=== PATIENT | male | born 1960 | race Caucasian/White ===

== ENCOUNTER 2023-08-25 14:59 | Emergency (ER) | payer OTHER | END 2023-08-25 15:58 | disposition left against medical advice (07) | LOC: ER 14:59 | DX: R25.1 Tremor, unspecified (principal); Z53.21 Procedure and treatment not carried out due to patient leaving prior to being seen by health care provider ==

== ENCOUNTER 2024-04-25 10:15 | Emergency (ER) | payer BC, MEDICAID ==
[~2024-04-25] VITALS: Ht 195.6 cm; Wt 115.9 kg
[2024-04-25 10:57] LABS: BILIRUBIN,URINE NEGATIVE (Neg); CLARITY,URINE CLEAR (Clear); COLOR,URINE YELLOW (Yellow); GLUCOSE, URINE NEGATIVE (Neg); KETONES,URINE NEGATIVE (Neg); LEUKOCYTE ESTERASE ,URINE NEGATIVE (Neg); NITRITES, URINE NEGATIVE (Neg); OCCULT BLOOD,URINE NEGATIVE (Neg); PROTEIN,URINE TRACE mg/dl (Neg)
[2024-04-25 10:59] LABS: UA COLLECTION TYPE CLN CATCH MIDSTREAM
[2024-04-25 11:03] LABS: FINE GRANULAR CAST 0-3 /LPF (NEGATIVE); MUCUS STRANDS MODERATE /LPF (Neg); RBC,URINE 0-2 /HPF (0-2); SQUAMOUS EPITHELIAL CELL,UR NONE SEEN /LPF (FEW); WBC,URINE 0-4 /HPF (0-4)
[2024-04-25 11:04] LABS: BACTERIA,URINE FEW /HPF (Neg)
[2024-04-25] MEDS ORDERED: FLO0.4C PO (11:15)
[2024-04-25 11:37] VITALS: BP 144/78; PULSE 78; RESP 18; TEMP 98.2; O2SAT 99
== END 2024-04-25 11:39 | disposition home or self-care (01) ==
LOC: ER 10:15
DX: R39.11 Hesitancy of micturition (principal); R39.15 Urgency of urination; Z79.899 Other long term (current) drug therapy
CPT/HCPCS: 81001; 99284

== ENCOUNTER 2024-04-28 18:10 | Emergency (ER) | payer BC, MEDICAID ==
[~2024-04-28] VITALS: Ht 195.6 cm; Wt 113.6 kg
[~2024-04-28 18:10] MED LIST: FLO0.4C PO
[2024-04-28 19:49] LABS: BILIRUBIN,URINE SMALL (Neg); CLARITY,URINE CLEAR (Clear); GLUCOSE, URINE NEGATIVE (Neg); KETONES,URINE NEGATIVE (Neg); LEUKOCYTE ESTERASE ,URINE NEGATIVE (Neg); OCCULT BLOOD,URINE NEGATIVE (Neg); PROTEIN,URINE NEGATIVE (Neg)
[2024-04-28 19:57] LABS: COLOR,URINE DARK YELLOW (Yellow); NITRITES, URINE NEGATIVE (Neg); UA COLLECTION TYPE CLN CATCH MIDSTREAM
[2024-04-28] MEDS ORDERED: LEVO-65 PO (20:25)
[2024-04-28] MEDS: LidoCAINE 2% Topical Jelly 11mL syringe (UROJET) TOP ONE (20:26)
[2024-04-28 21:00] VITALS: BP 132/87; PULSE 77; RESP 18; TEMP 97.8; O2SAT 98
== END 2024-04-28 21:02 | disposition home or self-care (01) ==
LOC: ER 18:11
DX: R33.0 Drug induced retention of urine (principal); Z79.899 Other long term (current) drug therapy
CPT/HCPCS: 51702; 81003; 99284; A4314; A4358; A5200

== ENCOUNTER 2024-05-13 11:04 | Emergency (ER) | payer BC, MEDICAID ==
[~2024-05-13] VITALS: Ht 198.1 cm; Wt 113.6 kg
[2024-05-13 11:57] LABS: BASOPHILS # (AUTO) 0.1 X10'3 (0-0.2); EOSINOPHILS # (AUTO) 0.1 X10'3 (0-0.9); LYMPHOCYTES # (AUTO) 1.8 X10'3 (1.1-4.8); MONOCYTES # (AUTO) 0.4 X10'3 (0-0.9); RED BLOOD COUNT 4.13 X10'6 (4.70-6.10); WHITE BLOOD COUNT 6.2 X10'3 (4.5-11.0)
[2024-05-13 11:59] LABS: BASOPHILS % (AUTO) 0.9 % (0-1); EOSINOPHILS % (AUTO) 1.3 % (0-6); HEMATOCRIT 36.8 % (42.0-52.0); HEMOGLOBIN 11.9 g/dl (14.0-17.9); LYMPHOCYTES % (AUTO) 28.5 % (21-51); MEAN CORPUSCULAR HEMOGLOBIN 28.7 PG (27.0-31.0); MEAN CORPUSCULAR HGB CONC 32.2 g/dL (33.0-36.5); MEAN CORPUSCULAR VOLUME 89.1 FL (78-98); MEAN PLATELET VOLUME 6.2 FL (7.4-10.4); MONOCYTES % (AUTO) 6.8 % (2-12); NEUTROPHILS # (AUTO) 3.9 X10'3 (1.8-7.7); NEUTROPHILS % (AUTO) 62.5 % (42-75); PLATELET COUNT 626 X10'3 (140-440); RED CELL DISTRIBUTION WIDTH 16.2 % (11.5-14.5)
[2024-05-13 12:01] LABS: ALBUMIN 3.5 G/DL (3.4-5.0); ANION GAP 12 (8-16); BLOOD UREA NITROGEN 12 MG/DL (7-18); BUN/CREATININE RATIO 8.8 (10.0-20.0); CALCIUM 9.2 MG/DL (8.5-10.1); CHLORIDE 104 MMOL/L (99-107); CREATININE 1.36 MG/DL (0.60-1.10); GLUCOSE 108 MG/DL (70-104); POTASSIUM 3.9 MMOL/L (3.5-5.1); SODIUM 141 MMOL/L (135-145); TOTAL CARBON DIOXIDE 25.3 MMOL/L (24-32); eCRCL 74 ML/MIN; eGFR 53 ML/MIN
[2024-05-13] MEDS: normal saline 1000ML IV soln IVB ONE (12:45)
[2024-05-13] MEDS: cefazolin 2gm/D5W 100mL 100 ML IV ONE (13:31)
[2024-05-13 15:05] LABS: BILIRUBIN,URINE NEGATIVE (Neg); CLARITY,URINE CLEAR (Clear); COLOR,URINE YELLOW (Yellow); GLUCOSE, URINE NEGATIVE (Neg); KETONES,URINE NEGATIVE (Neg); LEUKOCYTE ESTERASE ,URINE NEGATIVE (Neg); NITRITES, URINE NEGATIVE (Neg); OCCULT BLOOD,URINE TRACE-INTACT (Neg); PROTEIN,URINE NEGATIVE (Neg); UROBILINOGEN,URINE 0.2 E.U/dL (0.2-1.0)
[2024-05-13 15:07] LABS: UA COLLECTION TYPE CLN CATCH MIDSTREAM
[2024-05-13 15:10] LABS: BACTERIA,URINE FEW /HPF (Neg); MUCUS STRANDS MODERATE /LPF (Neg); SQUAMOUS EPITHELIAL CELL,UR FEW /LPF (FEW)
[2024-05-13 15:11] LABS: TRANSITIONAL EPI CELLS,URINE FEW /HPF
[2024-05-13] MEDS: LIDOcaine 1% W/epiNEPHrine 1:100,000 20ml vial SQ ONE (15:45)
[2024-05-13 15:51] VITALS: BP 123/79; PULSE 62; RESP 18; TEMP 98.6; O2SAT 98
[2024-05-13] MEDS ORDERED: CIPR500T5 PO (15:54)
[2024-05-13] MEDS: FOSFOMYCIN TROMETHAMINE 3 GM PACKET PO ONE (16:14)
== END 2024-05-13 16:17 | disposition home or self-care (01) ==
LOC: ER 11:05
DX: S80.02XA Contusion of left knee, initial encounter (principal); N39.0 Urinary tract infection, site not specified; Z79.2 Long term (current) use of antibiotics; Z79.899 Other long term (current) drug therapy; Z87.820 Personal history of traumatic brain injury; Z96.653 Presence of artificial knee joint, bilateral; X58.XXXA Exposure to other specified factors, initial encounter; Y93.89 Activity, other specified; Y92.89 Other specified places as the place of occurrence of the external cause; Y99.8 Other external cause status
CPT/HCPCS: 20610; 36415; 71045; 73560; 80048; 81001; 83605; 84145; 85025; 87040; 87070; 87088; 93005; 96361; 96365; 99285; J0690; J3490; J7030; A6446; A6449

== ENCOUNTER 2024-12-14 11:08 | Emergency (ER) | payer BC, MEDICAID ==
[~2024-12-14] VITALS: Ht 195.6 cm; Wt 118.7 kg
[2024-12-14 11:30] VITALS: TEMP 97.8
--- NOTE | 2024-12-14 12:00 | RADIOLOGY REPORT ---
CLINICAL INDICATION: Hand Pain,right TECHNIQUE: 3 radiographic views of the right hand were obtained. Comparison: None FINDINGS/IMPRESSION: There is no evidence of acute fracture or dislocation. The visualized joint space is well maintained. The alignment is anatomical. There is no radiopaque foreign body.
[2024-12-14] MEDS: LIDOcaine 1% W/epiNEPHrine 1:100,000 20ml vial IJ ONE (12:29)
[2024-12-14] MEDS: TETanus/Pertussis (Acell)/Diphther VAC/PF (Tdap-Adult) 0.5ml syringe IMVAC ONE (12:29)
--- NOTE | 2024-12-14 13:56 | Physician Documentation ---
History of Present Illness ~ Chief Complaint: Laceration Stated Complaint: HAND LAC Time Seen by MD: 11:35 HPI This is a 64-year-old male who presents with a laceration to the palm of his right hand at the base of the 4th digit, patient reports he tripped and fell yesterday on some sharp gravel. Patient reports no other injuries, acute symptoms or concerns, patient reports no numbness or tingling to the 4th finger or other areas of the hand. Tetanus Within 5 Years: No Medication Reconciliation Allergies: Coded Allergies: No Known Allergies (Unverified , 12/14/24) Scheduled Cephalexin*Monohydrate* (Keflex*), 1 CAP PO QID Past Medical History Past Medical History: No Pertinent History Review of Systems ROS Laceration to palm of right hand as stated above in the HPI, otherwise all systems are reviewed and negative. Physical Exam Vital Signs: Temperature: 97.8, Source: Temporal, Respiratory Rate: 18, BP: 124/75, Pulse Oximetry: 96, Weight: 118.700 Physical Exam VITALS: Reviewed and as above. GENERAL: Alert, nontoxic appearing, no apparent distress. RESPIRATORY: No increased work of breathing, no respiratory distress, speaking in full clear sentences EXTREMITIES: 1.5 cm laceration to the palm of right hand at the base of 4th digit, digit full ROM and strength against resistance in flexion and extension, neurovascularly intact, no evidence of tendon involvement, no foreign body observed. No anatomical snuffbox tenderness to right hand, no tenderness or swelling to remainder of right hand. Procedures Laceration/Wound Repair Laceration : Location: Palm of right hand base of 4th digit Length (cm): 1.5 Anesthesia: Lidocaine w/ Epi Prep: irrigated by nurse Irrigated w/ Saline (mls): 250 Margins: revised Foreign Body: not identified Repaired: skin Wound Repaired With: sutures Suture Size/Type: 4-0, ethilon Number of Superficial Sutures: 4 Dressing Applied: simple Splint Applied?: Yes Sling Applied?: No Tolerated Procedure Well?: yes, no complications Progress Results/Orders Results/Orders Orders - VERO CRABTREE, Complete (3vw Min) (12/14/24 11:31) Laceration/I&D Tray Set Up (12/14/24 12:20) Completed Orders - BRO,VERO W PEDIATRIC CNS Hand, Complete (3vw Min) (12/14/24 11:31) Tetanus/Pertuss/Diph Acell/Pf (Boostrix (12/14/24 12:20) Lidocaine 1% W/Epi 1:100,000 (Xylocaine (12/14/24 12:20) Vital Signs 12/14/24 12/14/24 11:30 14:29 Temp 97.8 Pulse 59 Resp 18 18 B/P (MAP) 124/75 122/86 Pulse Ox 96 100 EKG/XRAY/CT/US/VASC/MRI Bone/Soft Tissue X-Ray (Ext.) : Additional Comment CLINICAL INDICATION: Hand Pain,right TECHNIQUE: 3 radiographic views of the right hand were obtained. Comparison: None FINDINGS/IMPRESSION: There is no evidence of acute fracture or dislocation. The visualized joint space is well maintained. The alignment is anatomical. There is no radiopaque foreign body. Electronically Signed by:MONICA SMITH MD Date & Time: 12/14/241156 Dictated by: MONICA SMITH MD Dictation date and time: 12/14/241156 I have reviewed and agree with the radiology report. I have reviewed and interpreted the imaging as: No fracture or dislocation, no radiopaque foreign body Medical Decision Making Findings This 64-year-old male presented with a 1.5 cm laceration to the palm of his right hand at the base of the 4th digit after tripping and falling on a course gravel surface, there was no evidence of retained foreign body and no evidence of fracture fracture or dislocation on x-ray. Remainder of physical exam was benign and no other injuries reported or observed. The laceration was thoroughly irrigated with no foreign body observed in the wound and no evidence of tendon involvement, wound was well approximated with simple interrupted sutures without complication. Hand and fingers were neurovascularly intact. Due to patient not knowing his last Tdap he was provided a tetanus booster, additionally as wound was dirty surface and was open for some time before closure prophylactic antibiotics were indicated and prescribed. Patient was provided careful home care and return to care precautions which she verbalized understanding of. Patient appropriate for outpatient follow up. Differential Dx:Considerations: Include: Avulsion, Contusion, Fracture, Hematoma, Neurovascular injury, Retained foreign body Departure Time of Disposition: 13:53 Disposition: 01 HOME / SELF CARE / HOMELESS Impression: Primary Impression: Laceration Condition: Improved Discharge Instructions: Laceration Care, Adult, [id number] Additional Instructions: Keep the area clean and dry, you may wash the area but do not soak it, keep the area covered when not cleaning it. Please return to the medical provider of your choice in seven days for a wound recheck and suture removal. Please take antibiotics as prescribed. You may return to the emergency department, an urgent care, or your primary care provider. Please follow up with your primary care provider in the next few days. Please return to the emergency department for any new or worsening concerning symptoms including but not limited to signs of infection, increased pain or swelling to your hand, or if you develop a fever. Referrals: NO PRIMARY CARE PROVIDER (PCP) Prescriptions Cephalexin*Monohydrate* (Keflex*) 500 Mg Capsule 1 CAP PO QID for 5 Days, #20 CAP Prov: VERO CRABTREE 12/14/24 Education Educated: Patient Educated regarding: diagnosis, treatment, prognosis, need for follow up Signature Scribe Signature: No scribe Attestation: The note accurately reflects work and decisions made by me.LEXIS Fall 12/14/24 22:18 VERO CRABTREE Dec 14, 2024 13:56
[2024-12-14] MEDS ORDERED: CEPH-585 PO (13:59)
[2024-12-14 14:29] VITALS: BP 122/86; PULSE 59; RESP 18; O2SAT 100
== END 2024-12-14 14:32 | disposition home or self-care (01) ==
LOC: ER 11:10
DX: S61.411A Laceration without foreign body of right hand, initial encounter (principal); W01.0XXA Fall on same level from slipping, tripping and stumbling without subsequent striking against object, initial encounter; Y93.89 Activity, other specified; Y92.89 Other specified places as the place of occurrence of the external cause; Y99.8 Other external cause status
CPT/HCPCS: 12001; 73130; 90471; 90715; 99283; A6222; J7030; A6258; A6449

== ENCOUNTER 2025-01-02 13:01 | Inpatient (IN) | payer BC, MEDICAID ==
[~2025-01-02] VITALS: Ht 195.6 cm; Wt 118.5 kg
--- NOTE | 2025-01-02 13:38 | RADIOLOGY REPORT ---
CLINICAL INDICATION: HAND PAIN TECHNIQUE: 3 radiographic views of the right hand were obtained. Comparison: DI HAND, COMPLETE (3VW MIN) on DOS: 12/14/24 FINDINGS/IMPRESSION: There is acute mildly displaced fracture through the lateral base of the 5th digit proximal phalanx w ith associated soft tissue edema. There is diffuse demineralization.
--- NOTE | 2025-01-02 14:11 | Physician Documentation ---
History of Present Illness ~ Chief Complaint: Syncope Stated Complaint: HAND PAIN Time Seen by MD: 14:01 HPI 64-year-old male history of traumatic brain injury presenting for syncopal episode. He reports multiple syncopal episodes over the last several years since his injury but have worsened over the last month. Yesterday he got up and immediately lost consciousness and does not remember falling. He states that he usually will get dizzy and lightheaded with standing.. Denies any chest pain or shortness of breath. Medication Reconciliation Allergies: Coded Allergies: No Known Allergies (Unverified , 12/14/24) Past Medical History Past Medical History: No Pertinent History Review of Systems All Other Systems at this time: Reviewed and Negative Neurological: Reports: headache Physical Exam Vital Signs: Temperature: 97.7, Source: Temporal, Heart Rate: 75, Respiratory Rate: 18, BP: 152/90, Pulse Oximetry: 97, Weight: 118.550 Oxygen Flow Rate: 0 Physical Exam Well-appearing no distress HEENT abrasion over the left temporal region with ecchymosis C-spine nontender Cardiac no murmur Pulmonary clear to auscultation bilaterally Abdomen is soft nontender Lower extremity no edema Progress Results/Orders Results/Orders Orders - ANU KEYS MD, Complete (3vw Min) (01/02/25 13:14) Orthostatic Vs (01/02/25 ) Chest,Single View (01/02/25 15:19) Saline Lock (01/02/25 15:09) Monitor (01/02/25 15:09) Ringers Solution, Lacted (Lactated Ringe (01/02/25 15:10) Completed Orders - ANU KEYS MD, Complete (3vw Min) (01/02/25 13:14) Ibuprofen Tablet (Motrin Tablet) (01/02/25 14:35) Cbc/Diff (01/02/25 15:09) MG (01/02/25 15:09) Chest,Single View (01/02/25 15:19) BMP (01/02/25 15:09) Hs Troponin I W Calculations (01/02/25 15:09) PBNP (01/02/25 15:12) Medications Received in ER Medications (Trade) Dose Ordered Sig/Garo Route PRN Reason Start Time Stop Time Status Last Admin Dose Admin (Motrin tablet) 400 mg ONCE ONCE PO 01/02/25 14:35 01/02/25 14:36 DC 01/02/25 14:53 400 MG Vital Signs 01/02/25 01/02/25 01/02/25 13:04 15:02 15:04 Temp 97.7 Pulse 75 73 80 89 Resp 18 16 B/P (MAP) 152/90 140/82 132/79 117/78 Pulse Ox 97 O2 Flow Rate 0 Laboratory Tests Test 01/02/25 15:24 White Blood Count 6.2 Red Blood Count 4.59 L Hemoglobin 13.5 L Hematocrit 41.2 L Mean Corpuscular Volume 89.7 Mean Corpuscular Hemoglobin 29.5 Mean Corpuscular Hemoglobin Concent 32.9 L Red Cell Distribution Width 15.9 H Platelet Count 289 Mean Platelet Volume 6.8 L Neutrophils (%) (Auto) 59.7 Lymphocytes (%) (Auto) 28.8 Monocytes (%) (Auto) 9.4 Eosinophils (%) (Auto) 1.4 Basophils (%) (Auto) 0.7 Neutrophils # (Auto) 3.7 Lymphocytes # (Auto) 1.8 Monocytes # (Auto) 0.6 Eosinophils # (Auto) 0.1 Basophils # (Auto) 0.0 CBC Comment Sodium Level 139 Potassium Level 4.6 Chloride Level 107 Carbon Dioxide Level 26.8 Anion Gap 5 L Blood Urea Nitrogen 15 Creatinine 1.12 H Estimated GFR/1.73 m2 66 BUN/Creatinine Ratio 13.4 Glucose Level 103 Calcium Level 8.6 Magnesium Level 2.1 Troponin I High Sensitivity 6 Pro-B-Type Natriuretic Peptide 59 Albumin 3.7 Chemistry Comments EKG/XRAY/CT/US/VASC/MRI EKG : Additional Comment EKG independently interpreted time 2:05 p.m. indication syncope normal sinus rhythm rate [address] no [address] or T-wave abnormalities Medical Decision Making Additional Information Sahil him, arrhythmia, orthostatic hypotension Departure Disposition: ADMITTED INPATIENT Admitted to Inpatient Unit: to hospitalist Impression: Primary Impression: Syncope Qualified Codes: R55 - Syncope and collapse Additional Impression: Orthostatic hypotension Additional Impression Text 64-year-old male with history of TBI presenting for syncopal episode. He has h ad multiple syncopal episodes in the past worse with standing. No chest pain no shortness of breath. Fell yesterday hit his head presenting today due to pain in his hand. While here he underwent orthostatic testing and became symptomatic and had significant blood pressure change with standing. Given his worsening symptoms discussed case with hospitalist to admit for syncopal evaluation Referrals: NO PRIMARY CARE PROVIDER (PCP) ANU KEYS MD January 02, 2025 14:10
[2025-01-02] MEDS: ibuprofen tablet 400 MG TABLET PO ONE (14:53)
--- NOTE | 2025-01-02 15:41 | RADIOLOGY REPORT ---
CHEST RADIOGRAPH Indication: CP Technique: Single frontal view of the chest was obtained Comparison: FINDINGS: The cardiac silhouette is unremarkable. The lungs demonstrate left basilar airspace opacities. The pu lmonary vasculature is unremarkable. There is no pleural effusion.. There is no pneumothorax. Aortic atherosclerotic disease IMPRESSION: 1. Left basilar airspace opacification.
[2025-01-02 15:44] LABS: BASOPHILS % (AUTO) 0.7 % (0-1); EOSINOPHILS # (AUTO) 0.1 X10'3 (0-0.9); EOSINOPHILS % (AUTO) 1.4 % (0-6); HEMATOCRIT 41.2 % (42.0-52.0); HEMOGLOBIN 13.5 g/dl (14.0-17.9); LYMPHOCYTES # (AUTO) 1.8 X10'3 (1.1-4.8); LYMPHOCYTES % (AUTO) 28.8 % (21-51); MEAN CORPUSCULAR HEMOGLOBIN 29.5 PG (27.0-31.0); MEAN CORPUSCULAR HGB CONC 32.9 g/dL (33.0-36.5); MEAN CORPUSCULAR VOLUME 89.7 FL (78-98); MEAN PLATELET VOLUME 6.8 FL (7.4-10.4); MONOCYTES # (AUTO) 0.6 X10'3 (0-0.9); MONOCYTES % (AUTO) 9.4 % (2-12); NEUTROPHILS # (AUTO) 3.7 X10'3 (1.8-7.7); NEUTROPHILS % (AUTO) 59.7 % (42-75); PLATELET COUNT 289 X10'3 (140-440); RED BLOOD COUNT 4.59 X10'6 (4.70-6.10); RED CELL DISTRIBUTION WIDTH 15.9 % (11.5-14.5); WHITE BLOOD COUNT 6.2 X10'3 (4.5-11.0)
[2025-01-02 15:52] LABS: ALBUMIN 3.7 G/DL (3.4-5.0); ANION GAP 5 (8-16); BLOOD UREA NITROGEN 15 MG/DL (7-18); BUN/CREATININE RATIO 13.4 (10.0-20.0); CALCIUM 8.6 MG/DL (8.5-10.1); CHLORIDE 107 MMOL/L (99-107); CREATININE 1.12 MG/DL (0.60-1.10); GLUCOSE 103 MG/DL (70-104); MAGNESIUM 2.1 MG/DL (1.5-2.4); POTASSIUM 4.6 MMOL/L (3.5-5.1); PRO BRAIN NATRIURETIC PEPTIDE 59 PG/ML (0-125); SODIUM 139 MMOL/L (135-145); TOTAL CARBON DIOXIDE 26.8 MMOL/L (24-32); eCRCL 86 ML/MIN; eGFR 66 ML/MIN
[2025-01-02 16:15] VITALS: BP 107/60; PULSE 66; RESP 16; TEMP 97.7; O2SAT 96
[2025-01-02] MEDS: ringers solution, lacted 1,000 ML IV ONE (16:15)
[2025-01-02] MEDS ORDERED: ondansetron/PF 4mg/2ml inj IV PRN (16:50)
[2025-01-02] MEDS ORDERED: morphine 2 MG/ML inj. syringe IV PRN ×2 (16:50)
[2025-01-02] MEDS ORDERED: normal saline 1000ml 1,000 ML IV SCH (16:50)
[2025-01-02] MEDS ORDERED: acetaminophen 325mg tablet PO PRN ×2 (16:50)
[2025-01-02] MEDS ORDERED: HYDROcodone/acetaminophen 5mg/325mg tablet PO PRN (16:50)
[2025-01-02] MEDS ORDERED: mag hydrox/Alum hydrox/simeth 30ml oral suspension PO PRN (16:50)
[2025-01-02] MEDS ORDERED: magnesium hydroxide 30ml (MOM) UD suspension PO PRN (16:50)
--- NOTE | 2025-01-02 16:59 | HISTORY AND PHYSICAL ---
History & Physical Providers to CC ~ History of Present Illness Reason for Admit\Complaint: Syncope History of Present Illness This is a 64 years old male with history of traumatic brain injury who comes in after a syncopal episode; the episodes happened today while he was trying to get up he stated that he was out for possibly about 10 seconds and found himself down on the ground; patient stated that maybe he was groggy for about 10 seconds afterwards he was back to his normal self; he has a long history of getting lightheaded with standing; he stated that sometimes it is worse than others and he has been in a worse situation over the past couple of month; he stated that he has some difficulty and dysuria with urination; denies any nausea vomiting or diarrhea; denies any fever or chills; he has some headache after this fall; he also has a history of psychiatric illnesses and he is on multiple psychiatric medications; looks like about a month back he has been started on methylphenidate which per the patient improve his condition and he does not think that that made his condition worse Allergies: Coded Allergies: No Known Allergies (Unverified , 12/14/24) Home Medications Home Medications Active Past Medical History Past Medical History Traumatic brain injury Unknown psychiatric condition Past Surgical History Surgical History Comment Bilateral knee replacement Nipple foot surgeries related to flatfoot Past Social History Social History Comment Family history-no family history of diabetes or heart problems Social history-drinks a couple of beers at every day, no smoking or drugs ROS ROS A 10 point review of system was done with pertinent positives and negatives in the history of present illness Exam Vitals: Vital Signs Date Time Temp Pulse Resp B/P (MAP) Pulse Ox O2 Delivery O2 Flow Rate FiO2 01/02/25 16:15 97.7 66 16 107/60 (76) 96 0 General: Patient is in bed in nonacute distress HEENT normal oral mucosa no JVD no palpable firm palpable thyroid eyes with PERRLA; bruising of the left side of the face including the zygomatic area Lungs with normal bilateral entry no crackles no wheezing Heart normal rate and rhythm S1-S2 no murmurs Abdomen is soft nontender bowel sounds are present Right hand in an immobilizer dressing, no lower extremity edema Patient is awake and alert grossly motor and sensory intact Diagnostic Data Last Recorded Lab Results: 01/02/25 1524 01/02/25 1524 Advance Care Planning Advanced Care plannin - 30 Minutes Additional Plan Patient presents with syncopal episode per patient happened with standing; this is an acute on chronic situation as patient stated that this is been ongoing for long and has been getting worse over the past couple of months; check orthostatics; IV fluids; patient stated that he has some urinary symptoms so we will check a UA; CT of the head without contrast; check TSH, echo; patient will be put on telemetry History of traumatic brain injury History of unspecified psychiatric condition for which patient takes multiple medications including being recently started on methylphenidate; possibly related? Right hand injury adressed in ED Date of Service: January 02, 2025 Billing Provider: LÁZARO PRITCHETT MD Common Visit Codes: 29490-TMQDVUI INP/OBS CARE (HIGH) Secondary Visit Codes: [id number] CARE PLAN 30 MINUTES LÁZARO PRITCHETT MD January 02, 2025 16:59
--- NOTE | 2025-01-02 17:23 | RADIOLOGY REPORT ---
EXAM: CT CT HEAD HISTORY: head trauma COMPARISON: None TECHNIQUE: Axial images were obtained and reformatted in coronal and sagittal planes. All CT scans at this medical facility are performed using dose modulation techniques as appropriate to a performed e xam including the following: Automated exposure control was utilized; adjustment of the MA and/or KV according to patient size; and use of iterative reconstruction technique. CT Dose: CTDI volume is 65 mGy. Dose-length product is 1233 mGy*cm FINDINGS: Supratentorial Region: No evidence for large acute territorial ischemia. No intracranial hemorrhage is noted. Posterior Fossa: No acute abnormality. Brainstem: Unremarkable. Sellar/Suprasellar Region: Unremarkable. Ventricles, Cisterns, Sulci: Age-appropriate. Orbits: Unremarkable. Paranasal Sinuses: Unremarkable. Mastoid Air Cells: Unremarkable. Vasculature: Intracranial arterial calcified plaque formation noted. Bones/Soft Tissues: No acute abnormality. Other: None. IMPRESSION: 1. No acute intracranial abnormality.
[2025-01-02 19:48] LABS: THYROID STIMULATING HORMONE 1.95 ulU/ml (0.34-4.50)
[2025-01-02] MEDS ORDERED: docusate sod 100mg capsule PO SCH (20:00)
--- NOTE | 2025-01-03 08:17 | ELECTROCARDIOGRAPH REPORT ---
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
--- NOTE | 2025-01-03 16:37 | PROGRESS NOTE ---
Daily Progress Note Providers to CC ~ Antibiotic Timeout Antibiotic Ordered?: No Objective Vital Signs Date Time Temp Pulse Resp B/P (MAP) Pulse Ox O2 Delivery O2 Flow Rate FiO2 01/02/25 19:32 01/02/25 16:15 97.7 66 16 96 0 Result Diagram: 01/02/25 1524 01/02/25 1524 Problem\Assessment\Plan Patient left AMA Date of Service: January 03, 2025 Billing Provider: LÁZARO PRITCHETT MD Common Visit Codes: NOT BILLABLE LÁZARO PRITCHETT MD January 03, 2025 16:37
== END 2025-01-02 19:52 | disposition left against medical advice (07) | DRG 204 ==
LOC: ER 13:02 → ED HOLD 16:53
PROVIDERS: ADMIT Internal Medicine; ATTEND Internal Medicine
DX: I95.1 Orthostatic hypotension (principal); Z53.29 Procedure and treatment not carried out because of patient's decision for other reasons; Z96.653 Presence of artificial knee joint, bilateral; Z87.820 Personal history of traumatic brain injury; Z79.899 Other long term (current) drug therapy
CPT/HCPCS: 36415; 70450; 71045; 73130; 80048; 83735; 83880; 84443; 84484; 85025; 93005; 96360; 99285; A6449; G0378; J7120; L0172

== ENCOUNTER 2025-01-04 12:55 | Emergency (ER) | payer MEDICAID ==
[~2025-01-04] VITALS: Ht 195.6 cm; Wt 118.0 kg
[2025-01-04 12:56] VITALS: BP 144/105; PULSE 108; TEMP 98; O2SAT 100
[2025-01-04] MEDS ORDERED: IBUP-1986 PO (13:36)
--- NOTE | 2025-01-04 13:36 | Physician Documentation ---
History of Present Illness ~ Chief Complaint: Wound Re-Check Stated Complaint: R HAND INJURY RECHECK Time Seen by MD: 13:07 HPI This is a 64-year-old male who presents with right hand pain after being seen here two days prior after a syncopal episode where he injured his right hand and face, patient has hand and wrist in a splint due to fracture of the proximal 5th metacarpal. Patient reports that he was not provided a referral to an orthopedist for follow up and does not have a primary care provider. Patient reports that he has not been taking any medication for the hand and the pain in his hand is worsening. Patient reports no other acute symptoms or concerns. Tetanus within 5 years?: No Medication Reconciliation Allergies: Coded Allergies: No Known Allergies (Unverified , 12/14/24) Scheduled Ibuprofen (Ibuprofen), 1 TAB PO Q8H Past Medical History Past Medical History: No Pertinent History Review of Systems ROS Right hand pain as stated above in the HPI, otherwise all systems are reviewed and negative. Physical Exam Vital Signs: Temperature: 98.0, Source: Temporal, Heart Rate: 108, Respiratory Rate: 16, BP: 144/105, Pulse Oximetry: 100, Weight: 118.000 Oxygen Flow Rate: 0 Physical Exam VITALS: Reviewed and as above. GENERAL: Alert, nontoxic appearing, no apparent distress. RESPIRATORY: No increased work of breathing, no respiratory distress, speaking in full clear sentences MUSCULOSKELETAL: Fingers of right hand neurovascularly intact, brisk capillary refill, no ecchymosis Progress Results/Orders Results/Orders Completed Orders - VERO CRABTREE [employer] Ketorolac Trometh 15mg/Ml Vial (Toradol (01/04/25 13:30) Vital Signs 01/04/25 01/04/25 12:56 13:48 Temp 98.0 Pulse 108 Resp 16 16 B/P (MAP) 144/105 Pulse Ox 100 O2 Flow Rate 0 Medical Decision Making Additional info obtained from: old records Findings This 64-year-old male presented back to the emergency department due to right hand pain after being diagnosed with a 5th metacarpal fracture and placed in a splints two days prior, patient reported he had not been provided outpatient follow up instructions or a pain medication for pain management at home. The hand is neurovascularly intact and there appears to be no signs of complication from the splint or injury. Remainder of physical exam was benign and patient is appropriate for outpatient follow up. Patient medicated for pain with decrease pain reported. Patient provided information on following up with orthopedist and prescription for pain medication provided. Home care instructions and return to care precautions provided and patient verbalized understanding. Differential Dx:Considerations: Include: Other (Compartment syndrome, neurovascular injury, intractable pain) Departure Time of Disposition: 13:33 Disposition: 01 HOME / SELF CARE / HOMELESS Impression: Primary Impression: Right hand pain Condition: Improved Discharge Instructions: Metacarpal Fracture, [id number] Additional Instructions: Please follow up with [facility] as you of already been seen by them for your knee replacements. Please use the high-dose ibuprofen as needed for pain starting tomorrow, you may also use Tylenol as needed for pain as directed by the [id number] packaging. Please establish and follow up with a primary care provider in the next few days. Please return to the emergency department for any new or worsening concerning symptoms including but not limited to swelling to your hand, loss of feeling in her hand, or if you develop a fever. Referrals: NO PRIMARY CARE PROVIDER (PCP) Prescriptions Ibuprofen (Ibuprofen) 800 Mg Tablet 1 TAB PO Q8H for pain for 10 Days, #30 TAB 0 Refills Prov: VERO CRABTREE 01/04/25 Education Educated: Patient Educated regarding: diagnosis, treatment, prognosis, need for follow up Signature Scribe Signature: No scribe Attestation: The note accurately reflects work and decisions made by me.LEXIS Fall 01/04/25 22:27 VERO CRABTREE January 04, 2025 13:36
[2025-01-04 13:48] VITALS: RESP 16
[2025-01-04] MEDS: ketorolac trometh 15mg/ml vial 15 MG/ML ML IM ONE (13:48)
== END 2025-01-04 13:55 | disposition home or self-care (01) ==
LOC: ER 12:56
DX: M79.641 Pain in right hand (principal); R55 Syncope and collapse; Z79.899 Other long term (current) drug therapy
CPT/HCPCS: 96372; 99284; J1885

== ENCOUNTER 2025-08-13 15:28 | Inpatient (IN) | payer BC, MEDICAID ==
[~2025-08-13] VITALS: Ht 198.1 cm; Wt 119.8 kg
[~2025-08-13 15:28] MED LIST changes: -FLO0.4C PO; +IBUP-1986 PO
--- NOTE | 2025-08-13 15:54 | ELECTROCARDIOGRAPH REPORT ---
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 Nick Almeida Measurements Intervals [place] Rate: 110 P: 51 [place]: 160 QRS: -51 QRSD: 93 T: 50 QT: 346 QTc: 469 Interpretive Statements Sinus tachycardia Abnormal R-wave progression, early transition Inferior infarct, old Consider anterior infarct Electronically Signed On 08-15-2025 11:17:[address] Nick Almeida Please click the below link to view image of tracing.
[2025-08-13 15:59] LABS: MEAN PLATELET VOLUME 7.0 FL (7.4-10.4); RED CELL DISTRIBUTION WIDTH 15.1 % (11.5-14.5)
[2025-08-13 16:23] LABS: CREATININE 1.29 MG/DL (0.60-1.10); PRO BRAIN NATRIURETIC PEPTIDE 505 PG/ML (0-125); TOTAL CARBON DIOXIDE 25.6 MMOL/L (24-32); eCRCL 77 ML/MIN; eGFR 56 ML/MIN
--- NOTE | 2025-08-13 16:31 | RADIOLOGY REPORT ---
CLINICAL HISTORY: CP TECHNIQUE: 1 view of the chest was obtained. WID: COMPARISON: DI CHEST,SINGLE VIEW on DOS: 01/02/25, DI CHEST,SINGLE VIEW on DOS: 05/13/24 FINDINGS: Lungs: clear Cardiomediastinal silhouette: Status post median sternotomy. Heart is normal in size. Bones: No acute osseous abnormality. Imaged Upper Abdomen: unremarkable. IMPRESSION: NO ACUTE CARDIOPULMONARY PROCESS.
--- NOTE | 2025-08-13 17:47 | RADIOLOGY REPORT ---
CHEST RADIOGRAPH INDICATION: DIZZY TECHNIQUE: Single frontal view of the chest was obtained COMPARISON: DI CHEST,SINGLE VIEW on DOS: 08/13/25, DI CHEST,SINGLE VIEW on DOS: 01/02/25, DI CHEST,SINGLE VIEW on DOS: 05/13/24 FINDINGS: Lines and Tubes: None Lungs: No focal consolidation. Pleura: No effusion. No pneumothorax. Cardiomediastinal contours: Heart size is within Normal limits with mild atherosclerotic calcification and uncoiling of the aorta. Bones: No acute osseous abnormality. Small hiatal hernia. IMPRESSION: No acute cardiopulmonary disease.
--- NOTE | 2025-08-13 19:49 | Physician Documentation ---
History of Present Illness ~ Chief Complaint: Syncope Stated Complaint: POSS STROKE Time Seen by MD: 21:50 OK to notify your PCP?: Yes Source: patient Mode of Arrival: POV Exam Limitations: no limitations HPI Patient is a 64-year-old male with past medical history of TBI, vertigo and chronic pain presenting to the ED for evaluation of ongoing dizzy spells for the past two days. Patient reports that he had a TBI years ago and has had exper ienced vasovagal syncopal episodes with associated vertigo since then. He states that this usually happens once a month, and his last syncopal episode was on 08/10/2025. Patient reports that he was sitting around family when he stood up and suddenly blacked out" to the floor. Denies head strike, loss of consciousness, neck or back pain. Alongside this patient also reports of having urinary urgency and sometimes bowel incontinence. He is not on any anticoagulants. He is currently following up with a neurologist but is currently going through a change in providers. He reports that he was seen at his regular doctor and was prescribed midodrine for orthostatic hypotension. Medication Reconciliation Allergies: Coded Allergies: No Known Allergies (Unverified , 08/13/25) Scheduled Clonazepam (Clonazepam), 1 TAB PO BID, (Reported) Escitalopram Oxalate (Escitalopram Oxalate), 1 TAB PO DAILY, (Reported) Finasteride (Finasteride), 1 TAB PO DAILY, (Reported) Gabapentin (Gabapentin), 1 CAP PO BID, (Reported) Hydroxyzine Pamoate (Hydroxyzine Pamoate), 1 CAP PO QID, (Reported) Omeprazole (Prilosec), 1 CAP PO BID, (Reported) Trazodone HCl (Trazodone HCl), 1 TAB PO HS, (Reported) Miscellaneous Medications Lurasidone HCl (Lurasidone HCl), 1 TAB PO, (Reported) Midodrine Hcl (Midodrine Hcl), (Reported) [Tamsulosin], (Reported) Discontinued Medications Ibuprofen (Ibuprofen), 1 TAB PO Q8H, (Reported) Past Medical History Past Medical History: Vertigo, Sleep Apnea, GERD, Chronic Pain, Anxiety, Depression Other Past Medical History: History of sleep apnea, patient has had sleep studies in the past. Not on home O2. To TBI Smoking Status: Unknown if ever smoked Review of Systems All Other Systems at this time: Reviewed and Negative ROS Constitutional: Negative for fever and chills. HENT: Negative for sore throat and rhinorrhea. Eyes: Negative for pain and redness. Respiratory: Negative for cough and SOB. Cardiovascular: Negative for chest pain and palpitations. Gastrointestinal: Negative for nausea and vomiting. . Genitourinary: Negative for dysuria and hematuria. Musculoskeletal: Negative for acute back pain and acute neck pain. Skin: Negative for rash and pruritus. Neurological: Negative for acute numbness or weakness. Physical Exam Vital Signs: RN Vital Signs have been reviewed: Yes, Temperature: 97.8, Source: Temporal, Heart Rate: 92, Respiratory Rate: 18, BP: 177/114, Pulse Oximetry: 96 , Weight: 119.800 Oxygen Flow Rate: 0 Pulse Oximetry Reflects: adequate oxygenation Physical Exam General: Awake no acute distress. Verbal Head: No trauma Eyes: Nl lids Nl conjunctiva. No eye discharge ENT: Mucous membranes Nl. Lips Nl. No lesions Neck: Supple. No JVD. No visible mass Resp: Rate normal. No respiratory distress. No retractions. Normal air flow. No wheezes, rhonchi, or rales. Heart: Regular rhythm. No murmur. No rub Abdomen: Soft. Nontender. No guarding. No rebound Musc/skeletal: No calf or popliteal tenderness. No edema Skin: No rash. No petechiae. Not diaphoretic Neuro: Alert, oriented. Normal speech Progress Results/Orders Results/Orders Orders - DAVID LOZANO MD [facility] Hospitalist (08/14/25 01:00) Fill Out Med Reconciliation (08/14/25 01:00) Completed Orders - DAVID LOZANO MD Iohexol 350mg/Ml 100ml (Omnipaque 350mg/ (08/13/25 23:40) Vital Signs 08/13/25 08/13/25 08/13/25 08/13/25 15:45 19:47 21:08 22:00 Temp 97.8 Pulse 92 96 86 Resp 18 17 26 B/P (MAP) 177/114 101/81 (88) 120/90 (100) Pulse Ox 96 96 90 O2 Flow Rate 0 0 08/13/25 08/14/25 23:00 01:00 Pulse 82 80 Resp 27 10 B/P (MAP) 139/88 (105) 131/95 (107) Pulse Ox 90 92 Laboratory Tests Test 08/13/25 15:40 08/13/25 18:03 White Blood Count 9.0 Red Blood Count 4.60 L Hemoglobin 14.3 Hematocrit 42.6 Mean Corpuscular Volume 92.5 Mean Corpuscular Hemoglobin 31.0 Mean Corpuscular Hemoglobin Concent 33.6 Red Cell Distribution Width 15.1 H Platelet Count 260 Mean Platelet Volume 7.0 L Neutrophils (%) (Auto) 68.7 Lymphocytes (%) (Auto) 21.8 Monocytes (%) (Auto) 8.1 Eosinophils (%) (Auto) 0.9 Basophils (%) (Auto) 0.5 Neutrophils # (Auto) 6.2 Lymphocytes # (Auto) 2.0 Monocytes # (Auto) 0.7 Eosinophils # (Auto) 0.1 Basophils # (Auto) 0.0 CBC Comment Sodium Level 142 Potassium Level 3.6 Chloride Level 104 Carbon Dioxide Level 25.6 Anion Gap 12 Blood Urea Nitrogen 9 Creatinine 1.29 H Estimated GFR/1.73 m2 56 BUN/Creatinine Ratio 7.0 L Glucose Level 111 H Calcium Level 9.2 Troponin I High Sensitivity 22 20 Pro-B-Type Natriuretic Peptide 505 H Albumin 3.8 Chemistry Comments Troponin I High Sens Percent Delta 9 Troponin I Hi Sens Absolute Change -2 EKG/XRAY/CT/US/VASC/MRI Chest X-Ray : Interpreted By: radiologist Views: 1 VIEW Additional Comments CLINICAL HISTORY: CP TECHNIQUE: 1 view of the chest was obtained. WID: COMPARISON: DI CHEST,SINGLE VIEW on DOS: 01/02/25, DI CHEST,SINGLE VIEW on DOS: 05/13/24 FINDINGS: Lungs: clear Cardiomediastinal silhouette: Status post median sternotomy. Heart is normal in size. Bones: No acute osseous abnormality. Imaged Upper Abdomen: unremarkable. IMPRESSION: NO ACUTE CARDIOPULMONARY PROCESS. Electronically Signed by:JAYA MASON MD Date & Time: 08/13/[address] : Interpreted By: radiologist CT: head Impression CLINICAL HISTORY: Increased dizziness. TECHNIQUE: Helical imaging carried out from skull base to vertex without intravenous contrast. This exam was performed according to our departmental dose optimization program. Up-to-date CT equipment and radiation dose reduction techniques are utilized as appropriate. CTDIVol: 68.15 mGy DLP: 1251.1 mGy-cm WID: COMPARISON: CT CT HEAD on DOS: 01/02/25 FINDINGS: Mild cerebral volume loss with concordant prominence of the subarachnoid spaces and ventricles. Minor patchy low-attenuation in the cerebral white matter co nsistent with nonspecific white matter disease. Calcified plaque in the intracranial internal carotid arteries. There is no midline shift or mass effect. The [place] white matter interfaces are maintained. The basal cisterns are patent. There is no evidence of acute intracranial hemorrhage or extra-axial fluid collection. The mastoid air cells and visualized paranasal sinuses are well-aerated. IMPRESSION: 1. No acute intracranial abnormality. 2. Mild cerebral volume loss and minor chronic microvascular ischemic change. Electronically Signed by:DEMETRICE ALVARADO MD Date & Time: 08/13/252033 EXAM: CT CT T L SPINE HISTORY: DIZZINESS, R/O SPINAL IMPINGEMENT COMPARISON: None TECHNIQUE: Noncontrast axial CT images of the thoracic and lumbar spine were performed. Sagittal and coronal reformatted images were obtained. This CT exam was performed using one or more of the following dose reduction techniques: Automated exposure control, adjustment of the mA and/or kv according to patient size, or the use of iterative reconstruction techniques. Radiation Dose: CT Dose: CTDI volume is 34.70 mGy. Dose-length product is 2487.49 mGy*cm FINDINGS: There is no acute displaced fracture. There are mild degenerative changes of the thoracolumbar spine characterized by endplate osteophytosis and interve rtebral disc space narrowing. There is no CT evidence of high-grade spinal canal stenosis. The paraspinal soft tissues are unremarkable. There is a moderate hiatal hernia. IMPRESSION: 1. No acute displaced fracture. If clinical symptoms persist, MRI may be beneficial in further assessment. Electronically Signed by:HEAVEN STEVEN MD Date & Time: 08/14/25 0035 INDICATION: DIZZINESS, R/O SPINAL IMPINGEMENT COMPARISON: CT CT HEAD on DOS: 08/13/25, CT CT HEAD on DOS: 01/02/25 TECHNIQUE: CTA imaging of the head and neck was performed following the uneventful administration of intravenous contrast. Sagittal and coronal reformatted images were obtained from the source data. All CT scans at this medical facility are performed using dose modulation techniques as appropriate to a performed exam including the following: Automated exposure control was utilized; adjustment of the MA and/or KV according to patient size; and use of iterative reconstruction technique. 3D MIP post-processing of the source data set was performed and reviewed by the radiologist. Radiation Dose Information: CT Dose: CTDI volume is 16.0 mGy. Dose-length product is 697.96 mGy*cm FINDINGS: Diminutive left vertebral artery with a focal occlusion of the intradural segment. There is reconstitution of distal opacification. The caliber and course of the distal internal carotid arteries is unremarkable. No evidence of high-grade stenosis or occlusion of the proximal branch vessels of the [place]. The basilar artery is patent. No evidence of large aneurysm or art eriovenous malformation. The visualized thoracic aortic arch and proximal great vessels ar within e unremarkable. The left common, internal and external carotid arteries are within normal limits. Mild calcified plaque about the right carotid bulb. The right common, internal and external carotid arteries are otherwise unremarkable. The right vertebral artery is dominant. The left vertebral artery is diminutive. The limited visualized lung apices are clear. The surrounding soft tissues and osseous structures are otherwise unremarkable. IMPRESSION: 1. Diminutive left vertebral artery with a focal occlusion of the intradural segment. There is reconstitution of distal opacification. Electronically Signed by:HEAVEN STEVEN MD Date & Time: 08/14/25 0032 Medical Decision Making Additional information obtaine: old records, N/A Findings NIH stroke scale 0 EKG, no signs of ischemia EKG no signs of ischemia no eleEKG, no signs of ischemia no elevations are depressions X-ray, no acute findingsX-ray, no acute findings Labs no acute findLabs no acute findings Patient reports syncopal episodes associated with dizziness and weakness assoc iated with dizziness and weakness since his TBI. CT Head no acute findings CTA head and neck shows dimunitive vertebral artery with collateralization. 3+ test/labs used to diagnose Reviewed nursing notes Reviewed triage notes No social factors or issues at this time Differential diagnosis Meniere's, CVA, BPPV, TBI complications Clinical impression vertigo and paroxysmal syncope Patient will benefit from admission to the hospital for MRI, echocardiogram, orthostatic testing. Patient will be followed by Neurology Patient admitted at this time after discussion with hospitalist. Differential Dx:Considerations: Include: CVA, other (Vertigo, BPPB, [place]) Additional Information See MDM Departure Time of Disposition: 02:31 Disposition: 09 ADMITTED INPATIENT Admitted to Inpatient Unit: yes, to hospitalist Impression: Primary Impression: Vertebral artery occlusion Additional Impressions: Syncope Vertigo Condition: Unstable Referrals: NO PRIMARY CARE PROVIDER (PCP) Education Educated: Patient Educated regarding: diagnosis, treatment Additional Comment Medical Screen Exam This patient recieved a medical screening examination. After reviewing the individual's medical complaints with presenting symptoms and performing an appropriate physical examination, it was determined that no immediate life- threatening emergency medical condition is present. This individual is also not a women having contractions. Signature Scribe Signature: Scribed for David Lozano MD by Liliana Jackson . 08/13/25 22:10 Attestation: Signed by David Lozano MD by David Lozano . 08/17/2025 0139 JENNIFER EATON Aug 13, 2025 19:49 LILIANA MONTOYA Aug 13, 2025 22:13 DAVID LOZANO MD Aug 17, 2025 01:37
--- NOTE | 2025-08-13 20:37 | RADIOLOGY REPORT ---
CLINICAL HISTORY: Increased dizziness. TECHNIQUE: Helical imaging carried out from skull base to vertex without intravenous contrast. This exam was performed according to our departmental dose optimization program. Up-to-date CT equipment and radiation dose reduction techniques are utilized as appropriate. CTDIVol: 68.15 mGy DLP: 1251.1 mGy-cm WID: COMPARISON: CT CT HEAD on DOS: 01/02/25 FINDINGS: Mild cerebral volume loss with concordant prominence of the subarachnoid spaces and ventricles. Minor patchy low-attenuation in the cerebral white matter consistent with nonspecific white matter disease. Calcified plaque in the intracranial internal carotid arteries. There is no midline shift or mass effect. The [place] white matter interfaces are maintained. The basal cisterns are patent. There is no evidence of acute intracranial hemorrhage or extra-axial fluid collection. The mastoid air cells and visualized paranasal sinuses are well-aerated. IMPRESSION: 1. No acute intracranial abnormality. 2. Mild cerebral volume loss and minor chronic microvascular ischemic change.
--- NOTE | 2025-08-14 00:27 | RADIOLOGY REPORT ---
EXAM: CT CT CERVICAL SPINE INDICATION: DIZZINESS, R/O SPINAL IMPINGEMENT EXAM DATE: 08/13/2025 11:34 PM COMPARISON: None TECHNIQUE: Multiple axial CT images of the cervical spine were obtained using bone algorithm. Axial and coronal reformatting was done. Bone and soft tissue windows were reviewed. Radiation Dose Information: CT Dose: CTDI volume is 21.97 mGy. Dose-length product is 606.25 mGy*cm FINDINGS: There is no acute displaced fracture. There are degenerative changes of the cervical spine characterized by endplate osteophytosis and intervertebral disc space narrowing. No CT evidence of high-grade spinal stenosis. There is mild uncovertebral and facet hypertrophy contributing to mild multilevel neural foraminal narrowing. The paraspinal soft tissues are unremarkable. IMPRESSION: 1. No acute displaced fracture. 2. Degenerative changes of the cervical spine as detailed. If clinically indicated, MRI may be beneficial further evaluation. 3. All CT scans at this medical facility are performed using dose modulation techniques as appropriate to a performed exam including the following: Automated exposure control was utilized; adjustment of the MA and/or KV according to patient size; and use of iterative reconstruction technique.
--- NOTE | 2025-08-14 00:34 | RADIOLOGY REPORT ---
INDICATION: DIZZINESS, R/O SPINAL IMPINGEMENT COMPARISON: CT CT HEAD on DOS: 08/13/25, CT CT HEAD on DOS: 01/02/25 TECHNIQUE: CTA imaging of the head and neck was performed following the uneventful administration of intravenous contrast. Sagittal and coronal reformatted images were obtained from the source data. All CT scans at this medical facility are performed using dose modulation techniques as appropriate to a performed exam including the following: Automated exposure control was utilized; adjustment of the MA and/or KV according to patient size; and use of iterative reconstruction technique. 3D MIP post-processing of the source data set was performed and reviewed by the radiologist. Radiation Dose Information: CT Dose: CTDI volume is 16.0 mGy. Dose-length product is 697.96 mGy*cm FINDINGS: Diminutive left vertebral artery with a focal occlusion of the intradural segment. There is reconstitution of distal opacification. The caliber and course of the distal internal carotid arteries is unremarkable. No evidence of high-grade stenosis or occlusion of the proximal branch vessels of the [place]. The basilar artery is patent. No evidence of large aneurysm or arteriovenous malformation. The visualized thoracic aortic arch and proximal great vessels ar within e unremarkable. The left common, internal and external carotid arteries are within normal limits. Mild calcified plaque about the right carotid bulb. The right common, internal and external carotid arteries are otherwise unremarkable. The right vertebral artery is dominant. The left vertebral artery is diminutive. The limited visualized lung apices are clear. The surrounding soft tissues and osseous structures are otherwise unremarkable. IMPRESSION: 1. Diminutive left vertebral artery with a focal occlusion of the intradural segment. There is reconstitution of distal opacification.
--- NOTE | 2025-08-14 00:38 | RADIOLOGY REPORT ---
EXAM: CT CT T L SPINE HISTORY: DIZZINESS, R/O SPINAL IMPINGEMENT COMPARISON: None TECHNIQUE: Noncontrast axial CT images of the thoracic and lumbar spine were performed. Sagittal and coronal reformatted images were obtained. This CT exam was performed using one or more of the following dose reduction techniques: Automated exposure control, adjustment of the mA and/or kv according to patient size, or the use of iterative reconstruction techniques. Radiation Dose: CT Dose: CTDI volume is 34.70 mGy. Dose-length product is 2487.49 mGy*cm FINDINGS: There is no acute displaced fracture. There are mild degenerative changes of the thoracolumbar spine characterized by endplate osteophytosis and intervertebral disc space narrowing. There is no CT evidence of high-grade spinal canal stenosis. The paraspinal soft tissues are unremarkable. There is a moderate hiatal hernia. IMPRESSION: 1. No acute displaced fracture. If clinical symptoms persist, MRI may be beneficial in further assessment.
[2025-08-14] MEDS ORDERED: ondansetron/PF 4mg/2ml inj IV PRN (01:20)
[2025-08-14] MEDS ORDERED: magnesium sulf-water 2g/50mL 50 ML IV PRN (01:20)
[2025-08-14] MEDS ORDERED: magnesium hydroxide 30ml (MOM) UD suspension PO PRN (01:20)
[2025-08-14] MEDS ORDERED: magnesium Cl slow-release 64mg tablet PO PRN (01:20)
[2025-08-14] MEDS ORDERED: magnesium sulf-water 4G/100mL 100 ML IV PRN (01:20)
[2025-08-14] MEDS ORDERED: potassium Cl 20 mEq SR tablet PO PRN ×2 (01:20)
[2025-08-14] MEDS ORDERED: potassium Cl 40MEQ/1/2NS 520ml 520 ML IV PRN (01:20)
[2025-08-14] MEDS ORDERED: mag hydrox/Alum hydrox/simeth 30ml oral suspension PO PRN (01:20)
[2025-08-14] MEDS ORDERED: LURA80TA4 PO (01:49)
[2025-08-14] MEDS ORDERED: CLON1TAB12 PO (01:49)
[2025-08-14] MEDS ORDERED: TRAZ-256 PO (01:49)
[2025-08-14] MEDS ORDERED: HYDR50CA5 PO (01:49)
[2025-08-14] MEDS ORDERED: MIDO10TA3 (01:49)
[2025-08-14] MEDS ORDERED: OMEP40CA21 PO (01:49)
[2025-08-14] MEDS ORDERED: ESCI-8 PO (01:49)
[2025-08-14] MEDS ORDERED: TAMSULOSIN (01:49)
[2025-08-14] MEDS ORDERED: FINA5TAB11 PO (01:49)
[2025-08-14] MEDS ORDERED: GABA-530 PO ×2 (01:49→14:51)
--- NOTE | 2025-08-14 01:57 | HISTORY AND PHYSICAL-Residence ---
History & Physical Providers to CC Resident Creating Document: JJ BELTRAN, RES ~ History of Present Illness Primary Medical Doctor: Spenser Manuel Reason for Admit\Complaint: Dizziness History of Present Illness 64-year-old male patient presented to the hospital with chief complaint of dizziness. The patient states that he usually has on and off dizziness since a TBI approximately three years ago. The patient states that his dizziness is usually when he changes his position from sitting down to standing up. He endorses that his dizziness usually last for a couple of minutes and then it goes away but this time was completely different because his symptoms started approximately three days ago without stopping. The patient describes this dizziness like an unbalanced sensation to the point that he feels that he is going to blackout. Three days ago the patient states that he has a mechanical fall consequence of this dizziness. He denies any hearing change, visual changes, chest pain, palpitations, shortness of breath, urinary or intestinal symptoms. Allergies: Coded Allergies: No Known Allergies (Unverified , 08/13/25) Home Medications Home Medications Active Ibuprofen 800 Mg Tablet 1 Tab PO Q8H 10 Days Reported Hydroxyzine Pamoate 50 Mg Capsule 1 Cap PO QID 30 Days Midodrine Hcl 10 Mg Tablet Prilosec (Omeprazole) 40 Mg Capsule 1 Cap PO BID Clonazepam 1 Mg Tablet 1 Tab PO BID Gabapentin 100 Mg Capsule 100 Mg PO TID Trazodone HCl 100 Mg Tablet 1 Tab PO HS Lurasidone HCl 80 Mg Tablet 1 Tab PO Escitalopram Oxalate 10 Mg Tablet 1 Tab PO DAILY [Tamsulosin] 0.4 Cap Finasteride 5 Mg Tablet 1 Tab PO DAILY Past Medical History Past Medical History TBI three years ago after he hit his head with a truck door. BPH, taking Flomax. Major depressive disorder/anxiety/PTSD. Past Surgical History Surgical History Comment Bilateral knee replacement surgery two years ago. Past Social History Smoking: Quit greater than 1 year (The patient quit smoking 20 years ago, he used to smoke one pack a day for at least 10 years. Currently he is chewing tobacco.) Alcohol Use: Heavy (The patient states drinking two beers daily during the last year. The patient states that he stopped drinking for approximately 15 years after rehabilitation but during the last year he broke up with his girlfriend and he started drinking like this again. Previous to rehabilitation he used to drink one six pack daily for approximately 10 years.) Drug Use: Methamphetamine (He endorses history of methamphetamine use 20 years ago.) Lives with: Alone Lives In: Home Occupation: disabled ROS Constitutional: Denies: chills, diaphoresis, fever, malaise, weakness, other Eyes: Denies: pain, discharge, blurred vision, double vision, itching, photophobia, redness, tearing, other ENT: Denies: ear pain, ear bleeding, ear discharge, ear ringing, nose pain, nose bleeding, nose congestion, nose discharge, throat pain, throat swelling, voice change, mouth pain, mouth bleeding, mouth swelling, other Respiratory: Denies: cough, orthopnea, shortness of breath, SOB with exertion, SOB at rest, stridor, wheezing, hemoptysis, pain with breathing, other Cardiovascular: Denies: chest pain, left arm pain, diaphoresis, lightheadedness, syncope, edema, palpitations, irregular heart rate, other Gastrointestinal: Denies: abdomen distended, abdominal pain, nausea, vomiting, diarrhea, constipated, melena, hematemesis, hematochezia, rectal bleeding, rectal pain, dysphagia, poor appetite, poor fluid intake, other Genitourinary: Denies: burning, discharge, dysuria, frequency, flank pain, hematuria, incontinence, pain, decreased urine output, urgency, other Male Genitalia: Denies: penile discharge, penile sore, testicular pain, testicular swelling, other Neurological: Denies: speech problem, headache, dizziness, fainting, tingling, left sided numbness, right sided numbness, left sided weakness, right sided weakness, problems walking, unable to move lower ext, unable to move upper ext, petit mal seizures, tonic-clonic seizures, cognitive dysfunction, other Musculoskeletal: Denies: pain, swelling, back pain, gout, joint pain, joint swelling, muscle pain, muscle swelling, muscle stiffness, neck pain, other Integumentary: Denies: rash, itching, lesions, lumps, bruise(s), wound(s), laceration(s), dryness, change in color, other Allergic/Immunologic: Denies: hives, itching, frequent infections, difficulty healing, other Hematologic/Lymphatic: Denies: anemia, blood clots, easy bleeding, easy bruising, swollen glands, other Endocrine: Denies: excessive sweating, flushing, intolerance to cold, intolerance to heat, increased hunger, increased thrist, increased urine, unexplained weight gain, unexplained weight loss, other Psychiatric: Denies: depression, anxiety, sleeplessness, hopeless, suicidal, hallucinations, other Exam Vitals: Vital Signs Date Time Temp Pulse Resp B/P (MAP) Pulse Ox O2 Delivery O2 Flow Rate FiO2 08/13/25 21:08 17 08/13/25 19:47 96 96 0 08/13/25 15:45 97.8 Physical exam: General: Awake, alert, oriented. No acute distress. Well-developed, hydrated and well-built nourished. No anemia, Jaundice or clubbing. HEENT: Conjunctive are pink, sclerae clear, no icterus, pupil is equal in both sides, reactive to light, no ear discharge, no pharyngeal erythema or an edema. Neck: Supple, no adenopathy, thyromegaly. Trachea is midline. No JVD. Chest: Respiratory: Vesicular breath sounds. No ronchi, crepitus or wheezing. Resonance is normal upon percussion of all lung nieto. Cardiovascular: S1-S2 regular sinus rhythm and, regular rate, no gallops, no rubs, no murmurs Abdomen: No visible distention, Bowel sounds present on auscultation, on palpation: soft, nontender, no guarding, no rigidity. Extremities: No obvious deformities, no pitting edema bilaterally, capillary refill intact, peripheral pulsations are intact on both sides Neurologic: Mental status: alert and conscious, oriented to place, person and time, preserved memory, normal speech. Cranial nerves I-XII: Normal. Motor system: Preserved power, coordination, no evidenced involuntary movements, strength 5/5 in four extremities. Sensory system: Preserved temperature, pain and vibration sensation. 2+ deep tendon reflexes in biceps, triceps, quadriceps. Negative Babinski. Cerebellar: No nystagmus, dysdiadochokinesia, normal [id number] testing. Skin: Warm and dry. Presence of scar in bilateral lower extremities. Diagnostic Data Last Recorded Lab Results: 08/13/25 1540 08/13/25 1540 Advance Care Planning Advanced Care plannin - 30 Minutes (I spent a total of 17 minutes on reviewing various resuscitative measures/ACP with the patient at the time of admission. The patient has decided on a full code status.) Additional Plan Assessment and plan: 64-year-old male patient presented to the hospital with chief complaint of dizziness. Dizziness: Left vertebral artery occlusion: Differential also includes ischemic CVA, TIA, benign paroxysmal positional vertigo, orthostatic hypotension: The patient presented with chief complaint of dizziness for approximately three days. CTA of the head/neck was obtained which showed: Diminutive left vertebral artery with a focal occlusion of the intradural segment. There is reconstitution of distal opacification. Neurology consulted who recommended MRI of the head which is currently pending. Plan: Follow-up with head MRI and echocardiogram. Follow-up lipid panel and hemoglobin A1c. Aspirin 325 mg one time dose. Aspirin 81 mg daily. Atorvastatin 80 mg daily. Possible acute kidney injury likely prerenal: Current creatinine levels 1.29, GFR 56, BUN/creatinine ratio seven. Unknown baseline creatinine. Follow-up urine lytes. NS at 100 mL/hour H/O BPH: We will continue Flonase after med reconciliation. H/O Depression: H/O Anxiety: H/O PTSD: We will continue his home medication after med reconciliation. Code status: Full code DVT prophylaxis: SCDs Analgesia/sedation: Morphine Line/tube: PIV GI prophylaxis: Protonix Nutrition: Regular diet PT: Yes Prognosis: Guarded Disposition: The patient will be admitted to neuro floor with telemetry. Jj Calle Internal Medicine Resident [facility] Date of Service: Aug 14, 2025 Billing Provider: DEANDRA PADILLA MD Common Visit Codes: 19968-[id number] INP/OBS CARE (HIGH) Assessment/Plan Assessment 64-year-old with dizziness and fall. Workup does suggest issues with posterior circulation stenotic basilar artery with reasonable collaterals per the documentations. Neurology is already on the case. Patient has received antiplatelets and is on statins. Will maximize the medical care and blood pressure control and other risk factor modifications. Neurology is already on the case appreciate their help Reviewed notes by resident. Discussed the case with him. Agree with his assessments and plans. JJ BELTRAN, RES Aug 14, 2025 01:57 DEANDRA PADILLA MD Aug 14, 2025 06:26
--- NOTE | 2025-08-14 02:00 | [facility] CONSULT REPORT ---
[facility] Procedure Note [facility] Procedure Note Consult [facility] Note # Demographics Consult Type: General Neurology Patient Location: Inpatient First Name: Ephraim Last Name: Libertad Date of : 1960 Age: 64 Gender: Male Facility: [facility] Time of Initial Page (): 08/14/2025 01:52 First Contact with Site (): 08/14/2025 01:52 Phone Only Consult: 64-year-old male with a history of traumatic brain injury who presents with persistent dizziness ongoing for the past 3 days. The patient reports that dizziness initially began 3 years ago following a traumatic brain injury. At that time, the episodes were intermittent, short in duration lasting only a couple of minutes, and would resolve on their own. However, 3 days prior to presentation, the patient began experiencing more severe and persistent dizziness that has not stopped. He describes the current dizziness as feeling unbalanced and states that he feels like he is going to blackout. The severity of symptoms has resulted in a mechanical fall. CTA head and neck showed diminutive left vertebral artery with focal occlusion in the intradural segment, reconstitution of distal opacification. Right vertebral artery unremarkable. MRI Brain wo is pending. Neurology is consulted about anti-platelet therapy recommendation given CTA head/neck finding of the left VA. Recommendation: Start ASA 325 mg daily. Agree with MRI Brain wo to evaluate for any evidence of an acute stroke that would explain his dizziness. IF on acute infarct, patient doesn't need the entire stroke work-up. Phone Agreement: - phone consult deemed mutually sufficient for patient care # Data Time Head CT personally read by me (): 08/14/2025 01:[address]: - no bleed - per radiologist read Time CTA personally reviewed by me (): 08/14/2025 01:56 CTA Head: - no large vessel occlusion - per radiologist read - Diminutive left VA with focal occlusion of the intradural segment. There is reconstitution distally # Assessment Impression: - Vertigo # Plan Other: - If patient has any neurological deterioration please call me back immediately # Logistics Attestation of consult completion: The patient is located at: [facility]. I performed this phone consultation from my offsite office Total time spent in telemedicine encounter: I spent 10 minutes in reviewing clinical data and/or imaging, obtaining history, communicating with the onsite care team, and in preparation of this report. # Demographics First Name: Ephraim Last Name: Maurer Facility: [facility] Neuro Consult Order placed for: Yes CR ATKINS MD Aug 14, 2025 02:00
[2025-08-14] MEDS: aspirin 325mg tablet, delayed-release (Ecotrin) PO ONE (03:22)
[2025-08-14] MEDS: pantoprazole 40mg Tablet.DR PO SCH ×2 (03:23→07:30)
[2025-08-14] MEDS: normal saline 1000ml 1,000 ML IV SCH (03:27)
[2025-08-14 07:25] VITALS: RESP 18
[2025-08-14 07:31] VITALS: BP 136/84; PULSE 79; RESP 14; TEMP 97.8; O2SAT 94
[2025-08-14] MEDS ORDERED: IBUP-1986 PO (07:40)
[2025-08-14] MEDS: K and/or MAG REPLACEMENT MC SCH (08:00)
[2025-08-14] MEDS: aspirin 81mg, enteric-coated 1 TAB TABLET.DR PO SCH (08:20)
[2025-08-14 08:44] LABS: OSMOLALITY 290.0 MOSM/K (280-300)
[2025-08-14 09:28] LABS: OSMOLALITY UA 855.0 MOSM/K (50-1400)
[2025-08-14 09:29] LABS: LEUKOCYTE ESTERASE ,URINE NEGATIVE (Neg); NITRITES, URINE NEGATIVE (Neg); OCCULT BLOOD,URINE NEGATIVE (Neg)
[2025-08-14 09:41] LABS: UA COLLECTION TYPE NON-SPECIFIED
[2025-08-14 09:42] LABS: MUCUS STRANDS NONE SEEN /LPF (Neg); SQUAMOUS EPITHELIAL CELL,UR FEW /LPF (FEW)
[2025-08-14 09:45] LABS: CREATININE,URINE RANDOM 339.0 MG/DL; TOTAL PROTEIN,URINE RANDOM 39.9 MG/DL; UA UREA RANDOM 968.0 MG/DL
[2025-08-14 10:49] LABS: UA EOSINOPHILS NO EOS /HPF
[2025-08-14 11:51] VITALS: BP_SYST 111; BP_SYST 131; BP_SYST 134; BP_DIAS 71; BP_DIAS 79; BP_DIAS 80; PULSE 72; PULSE 79; PULSE 93
--- NOTE | 2025-08-14 17:37 | CARDIOLOGY REPORT ---
APPROVED REPORT EXAM: Comprehensive 2D, Doppler, and color-flow Echocardiogram with saline. Patient Location: [address] Blood Pressure: 111/71 mmHg Heart Rate: 74 bpm Rhythm: SINUS Indications TRANSIENT ISCHEMIC ATTACK EVALUATE FOR PFO DIZZINESS Home Theatre Technician: Anastacio Flores MD Previous echo: none available (after hours) 2D Dimensions IVSd 1.4 (0.7-1.1cm) LVDd 4.5 cm PWd 1.3 (0.7-1.1cm) IVSs 1.7 (0.8-1.2cm) LVDs 2.6 (2.5-4.0cm) PWs 1.5 (0.8-1.2cm) LVOT Diameter 2.13 (1.8-2.4cm) LVEF(%) 73.0 (>50%) Ao Asc Diam. 3.80 cm FS (%) 41.8 % SV 66.8 ml CO 5.0 L/min M-Mode Dimensions Aortic Root 4.08 (2.2-3.7cm) Aortic Cusp Exc 2.45 (1.5-2.0cm) Aortic Valve AoV Peak Caleb. 144.7 cm/s AoV VTI 25.9 cm AO Peak GR. 8.4 mmHg AO Mean GR. 5 mmHg LVOT VTI 23.19 cm LVOT Peak Caleb. 133.0 cm/s NELI(VTI)/BSA 3.18 cm2/m2 NELI (VTI) 3.18 cm2 AV DI 0.89 % Mitral Valve MV E Velocity 67.7 cm/s MV Peak Gr. 3 mmHg MV DECEL TIME 200 ms MV A Velocity 84.9 cm/s MV PHT 52 ms E/A Ratio 0.8 MVA (PHT) 4.23 cm2 MV VMax 83.7 cm/s TDI Medial E' P. V 7.90 cm/s E/Medial E' 8.6 Pulmonary Vein S1 Velocity 44.5 cm/s D2 Velocity 26.1 cm/s PVa Velocity 26.8 cm/s PVa Duration 108 msec LEFT VENTRICLE Normal LV size and function. Moderate concentric hypertrophy. LVEF is 65-70%. RIGHT VENTRICLE RV is normal size and function. ATRIA LA size appears normal. Saline study was performed with 2 IV injections of 10 ccs of agitated normal saline at rest, with cough, and with valsalva. Negative saline study for right to left flow. AORTIC VALVE Trileaflet AV appears mildly sclerotic without stenosis or insufficiency by color and spectral flow Doppler. MITRAL VALVE Mild MV annular calcification without stenosis. Trace regurgitation by color and spectral flow Doppler. TRICUSPID VALVE TV appears structurally normal with trace regurgitation by color and spectral flow Doppler. PULMONIC VALVE Normal PV without stenosis, physiologic insufficiency by color and spectral flow Doppler. GREAT VESSELS Aortic root is dilated. Ascending aorta is dilated. PERICARDIUM Normal pericardium. No effusion. Other Information Study Quality: Adequate Conclusion Normal LV size and function. Moderate concentric hypertrophy. LVEF is 65-70%. RV is normal size and function. LA size appears normal. Saline study was performed with 2 IV injections of 10 ccs of agitated normal saline at rest, with cough, and with valsalva. Negative saline study for right to left flow. Trileaflet AV appears mildly sclerotic without stenosis or insufficiency by color and spectral flow Doppler. Mild MV annular calcification without stenosis. Trace regurgitation by color and spectral flow Doppler. TV appears structurally normal with trace regurgitation by color and spectral flow Doppler. Aortic root is dilated. Ascending aorta is dilated. Normal pericardium. No effusion.
[2025-08-14 18:00] VITALS: BP 137/97; PULSE 93; RESP 15; TEMP 98.3; O2SAT 97
[2025-08-14 20:00] VITALS: BP_SYST 117; BP_SYST 124; BP_SYST 154; BP_DIAS 71; BP_DIAS 92; BP_DIAS 94; PULSE 70; PULSE 85; PULSE 99; RESP 16; O2SAT 94
[2025-08-14] MEDS: ESCITALOPRAM 10 mg tablet 10 MG TABLET PO SCH (20:27)
[2025-08-14 22:00] VITALS: BP 127/78; PULSE 87; RESP 14; TEMP 98.4; O2SAT 94
[2025-08-15 06:27] LABS: MEAN PLATELET VOLUME 6.8 FL (7.4-10.4); RED CELL DISTRIBUTION WIDTH 14.4 % (11.5-14.5)
[2025-08-15 06:35] LABS: CREATININE 1.13 MG/DL (0.60-1.10); TOTAL CARBON DIOXIDE 24.9 MMOL/L (24-32); eCRCL 88 ML/MIN; eGFR 66 ML/MIN
[2025-08-15 07:00] VITALS: BP 117/71; PULSE 70; RESP 16; TEMP 98; O2SAT 92
[2025-08-15 08:00] VITALS: BP_SYST 129; BP_SYST 138; BP_SYST 145; BP_DIAS 76; BP_DIAS 78; BP_DIAS 94; PULSE 72; PULSE 83; PULSE 92
[2025-08-15 11:05] VITALS: BP 116/66; PULSE 76; RESP 15; TEMP 97.9; O2SAT 95
--- NOTE | 2025-08-15 13:03 | RADIOLOGY REPORT ---
CLINICAL HISTORY: leg weakness TECHNIQUE: Routine multiplanar imaging of the brain was performed without gadolinium contrast. COMPARISON: CT CTA NECK/HEAD on DOS: 08/13/25, CT CT HEAD on DOS: 08/13/25, CT CT HEAD on DOS: 01/02/25 FINDINGS: There is no abnormal restricted diffusion to suggest acute infarction. There are a few punctate foci of T2 hyperintensity within the white matter of the left cerebral hemisphere, of doubtful clinical significance. There is no evidence for acute ischemic changes, mass, mass effect, or extra- axial fluid collection. There is no hydrocephalus or midline shift. The cerebral sulci and subarachnoid cisterns are not effaced. The imaged paranasal sinuses are clear. The globes are intact. The midline structures, including the corpus callosum, are unremarkable. The intracranial flow voids are maintained. IMPRESSION: No acute intracranial abnormality seen. No evidence for acute infarct.
== END 2025-08-15 15:00 | disposition home health service (06) | DRG 46 ==
LOC: ER 15:28 → ED HOLD 08-14 01:31 → SUR 3N 08-14 07:16
PROVIDERS: ADMIT Internal Medicine Critical Care Medicine; ATTEND Internal Medicine
PROC: B3251ZZ Computerized Tomography (CT Scan) of Bilateral Common Carotid Arteries using Low Osmolar Contrast (ICD-10-PCS; principal; 2025-08-13)
PROC: B32G1ZZ Computerized Tomography (CT Scan) of Bilateral Vertebral Arteries using Low Osmolar Contrast (ICD-10-PCS; 2025-08-13)
PROC: B3201ZZ Computerized Tomography (CT Scan) of Thoracic Aorta using Low Osmolar Contrast (ICD-10-PCS; 2025-08-13)
PROC: B3281ZZ Computerized Tomography (CT Scan) of Bilateral Internal Carotid Arteries using Low Osmolar Contrast (ICD-10-PCS; 2025-08-13)
DX: I65.02 Occlusion and stenosis of left vertebral artery (principal); F32.A Depression, unspecified; F41.9 Anxiety disorder, unspecified; K21.9 Gastro-esophageal reflux disease without esophagitis; G47.30 Sleep apnea, unspecified
CPT/HCPCS: 36415; 70450; 70496; 70498; 70551; 71045; 72125; 72128; 72131; 80048; 80053; 81001; 82550; 82570; 83036; 83690; 83735; 83880; 83930; 83935; 84132; 84156; 84300; 84443; 84484; 84540; 85025; 87081; 87207; 93005; 93306; 97116; 97161; 97530; 99285; G0378; J7030; Q9967